=== PATIENT | female | born 1950 | race Caucasian/White ===

== ENCOUNTER → 2020-09-14 14:58 | Outpatient (CLI) | payer MEDICARE, BC, SELFPAY ==
--- NOTE | ~2020-09-14 | MM_ITS ---
EXAMINATION: MM screening celio BI w ba HISTORY: Screening mammogram TECHNIQUE: Craniocaudal and mediolateral oblique 3-D tomosynthesis images were obtained and synthetic 2-D images were generated. CAD analysis was submitted and interpreted. COMPARISON: 07/11/17, 10/31/2017, 10/04/2016 bilateral digital screening mammogram examinations BREAST PARENCHYMAL COMPOSITION: The breasts are almost entirely fatty. FINDINGS: There is no evidence of suspicious mass, calcification, or architectural distortion to sugg est malignancy in either breast. There has been no suspicious interval change. IMPRESSION: 1. No mammographic evidence of malignancy. 2. Recommend routine screening mammography in one year. BI-RADS Category 1: Negative Reviewed, dictated and finalized at location A. ER RUNNER
== END ==
PROVIDERS: PCP Family Medicine; Visit Provider Obstetrics & Gynecology Gynecology
DX: Z12.31 Encounter for screening mammogram for malignant neoplasm of breast (principal)
CPT/HCPCS: 77063; 77067

== ENCOUNTER → 2021-11-04 13:34 | Outpatient (CLI) | payer MEDICARE, SELFPAY ==
--- NOTE | ~2021-11-04 | MM_ITS ---
EXAMINATION: MM screening celio BI w ba HISTORY: Screening TECHNIQUE: Craniocaudal and mediolateral oblique 3-D tomosynthesis images were obtained and synthetic 2-D images were generated. CAD analysis was submitted and interpreted. COMPARISON: Comparison to multiple prior studies sequentially, with oldest reviewed study dated 08/22. BREAST PARENCHYMAL COMPOSITION: Breast composed of scattered areas of fibroglandular density. FINDINGS: The left breast is stable without evidence for malignancy. There is a new mass in the lower outer quadrant of the right breast, middle third. IMPRESSION: 1. New right breast mass, lower outer quadrant. 2. Additional mammographic views and possible breast ultrasound are recommended. BI-RADS Category 0: Incomplete: Needs additional imaging evaluation. Reviewed, dictated and finalized at location A. SAWYER IMPRESSION: 1. New right breast mass, lower outer quadrant. 2. Additional mammographic views and possible breast ultrasound are recommended . BI-RADS Category 0: Incomplete: Needs additional imaging evaluation.
== END ==
PROVIDERS: PCP Family Medicine; Visit Provider Obstetrics & Gynecology Gynecology
DX: Z12.31 Encounter for screening mammogram for malignant neoplasm of breast (principal); R92.8 Other abnormal and inconclusive findings on diagnostic imaging of breast
CPT/HCPCS: 77063; 77067

== ENCOUNTER → 2021-11-22 09:07 | Outpatient (CLI) | payer MEDICARE, SELFPAY ==
--- NOTE | ~2021-11-22 | MMUS_ITS ---
EXAMINATION: MM diagnostic celio RT w ba, US breast RT limited HISTORY: Follow-up right breast mass TECHNIQUE: Additional 3-D tomosynthesis images of the right breast were performed and synthetic 2-D i mages were generated. CAD analysis was submitted and interpreted. High resolution Limited right breas t ultrasound was performed. COMPARISON: Comparison to multiple prior studies sequentially, with oldest reviewed study dated 09/21. BREAST PARENCHYMAL COMPOSITION: Breast composed of scattered areas of fibroglandular density FINDINGS: MAMMOGRAPHIC FINDINGS: There is a persistent mass in the lower outer quadrant of the right breast. There are no suspicious c alcifications or architectural distortion. ULTRASOUND: Limited right breast ultrasound: At 9:00, 4 cm from the nipple, there is an oval hypoechoic mass fior uring 6 mm without posterior features or internal vascularity, likely benign and corresponding to the mammographic finding. IMPRESSION: 1. Probable benign right breast mass, lower outer quadrant. 2. Recommend 6 month follow-up diagnostic right mammogram and ultrasound BI-RADS Category 0: Incomplete: Needs additional imaging evaluation. Reviewed, dictated and finalized at location A. C[employer]URAL [employer] SUPERVISOR IMPRESSION: 1. Probable benign right breast mass, lower outer quadrant. 2. Recommend 6 month follow-up diagnostic right mammogram and ultrasound BI-RADS Category 0: Incomplete: Needs additional imaging evaluation.
== END ==
PROVIDERS: PCP Family Medicine; Visit Provider Obstetrics & Gynecology Gynecology
DX: R92.8 Other abnormal and inconclusive findings on diagnostic imaging of breast (principal); N63.14 Unspecified lump in the right breast, lower inner quadrant
CPT/HCPCS: 76642; 77061; 77065; G0279

== ENCOUNTER → 2022-05-23 09:44 | Outpatient (CLI) | payer MEDICARE, SELFPAY ==
--- NOTE | ~2022-05-23 | MMUS_ITS ---
EXAMINATION: MM diagnostic celio RT w ba, US breast RT limited HISTORY: Follow-up right breast mass TECHNIQUE: Additional 3-D tomosynthesis images of the right breast were performed and synthetic 2-D i mages were generated. CAD analysis was submitted and interpreted. High resolution Limited right breas t ultrasound was performed. COMPARISON: Comparison to multiple prior studies sequentially, with oldest reviewed study dated 09/21. BREAST PARENCHYMAL COMPOSITION: Breast composed of scattered areas of fibroglandular density FINDINGS: MAMMOGRAPHIC FINDINGS: There are no suspicious masses, calcifications or architectural distortion in the right breast to sug gest malignancy. Interval resolution of small mass in the lower outer quadrant of the right breast. ULTRASOUND: Limited right breast ultrasound: There is decreased size of oval hypoechoic 4 mm mass of the right br east at 9:00, 4 cm from the nipple with echogenic hilum, consistent with small lymph node. No suspici ous masses to suggest malignancy. IMPRESSION: 1. No evidence for malignancy in the right breast. Benign findings. 2. Routine yearly screening mammogram and regular clinical breast examination are recommended. BI-RADS Category 2: Benign finding(s). Reviewed, dictated and finalized at location A. IMPRESSION: 1. No evidence for malignancy in the right breast. Benign findings. 2. Routine yearly screening mammogram and regular clinical breast examination a re recommended. BI-RADS Category 2: Benign finding(s).
== END ==
PROVIDERS: Visit Provider Obstetrics & Gynecology Gynecology
DX: R92.8 Other abnormal and inconclusive findings on diagnostic imaging of breast (principal)
CPT/HCPCS: 76642; 77061; 77065; G0279

== ENCOUNTER → 2022-08-03 10:20 | Outpatient (CLI) | payer MEDICARE, SELFPAY ==
--- NOTE | ~2022-08-03 | US_ITS ---
EXAMINATION: US pelvic complete DATE: 08/03/2022 10:43 INDICATION: Postmenopausal bleeding Comparison:Ultrasound dated 02/04/2007 TECHNIQUE: Multiple transabdominal and endovaginal sonographic images of the pelvis performed. FINDINGS: The uterus measures 11.5 x 8.3 x 8.3 cm. There is a uterine fibroid measuring 6.5 x 5.3 x 5 .4 cm The endometrial complex measures 8 mm. The ovaries are not visualized. There is no free fluid in the pelvis. There are no abnormal masses seen on either side. IMPRESSION: 1. Thickened endomtrial complex. The differential diagnosis includes endometrial hyperplasia, polyp a nd carcinoma. Biopsy is recommended. 2: Enlarged uterus containing a 6.5 cm partially calcified uterine fibroid. Reviewed, dictated and finalized at location A. IMPRESSION: 1. Thickened endomtrial complex. The differential diagnosis includes endometria l hyperplasia, polyp and carcinoma. Biopsy is recommended. 2: Enlarged uterus containing a 6.5 cm partially calcified uterine fibroid.
== END ==
PROVIDERS: PCP Family Medicine; Visit Provider Obstetrics & Gynecology Gynecology
DX: N95.0 Postmenopausal bleeding (principal); N85.2 Hypertrophy of uterus
CPT/HCPCS: 76856

== ENCOUNTER 2022-09-13 12:38 | Outpatient (CLI) | payer MEDICARE, SELFPAY ==
[2022-09-13 13:35] LABS: Anion Gap 7 mmol/L (8-16); Blood Urea Nitrogen 20 mg/dL (7-17); Calcium 8.8 mg/dL (8.4-10.2); Carbon Dioxide 28 mmol/L (22-30); Chloride 99 mmol/L (98-107); Estimated Glomerular Filt Rate 55; Glucose 211 mg/dL (65-110); Potassium 3.4 mmol/L (3.4-5.0); Sodium 134 mmol/L (137-145)
== END 2022-09-13 12:39 | disposition home or self-care (01) ==
LOC: ANHSURGERY 12:45
PROVIDERS: Anesthesiology; PCP Emergency Medicine; Visit Provider Obstetrics & Gynecology Gynecology
DX: Z01.818 Encounter for other preprocedural examination (principal); Z79.4 Long term (current) use of insulin; E11.65 Type 2 diabetes mellitus with hyperglycemia
CPT/HCPCS: 36415; 80048

== ENCOUNTER 2022-09-18 00:26 | Day surgery (SDC) | payer MEDICARE, SELFPAY ==
[2022-09-08 08:28] VITALS: BMI 39.6
--- NOTE | 2022-09-08 08:43 | PC.NURSE ---
Addendum entered by China Avilez RN 09/13/22 13:27: 09/13/22 PT HERE FOR TESTING, STATES TAKES BISOPROLOL AT NOC - IN INFORMED NOT TO TAKE BISOPROLOL AM OF SURGERY - UNDERSTANDING VOICED. BISOPROLOL MARKED OUT ON HER INSTRUCTION SHEET Original Note: PRE-OP INSTRUCTIONS, PLEASE READ CAREFULLY Report to the Outpatient Waiting Room, entrance under the green pavilion located off [facility], at time _1100_ on date _09/18/22_. Planned Procedure Time: _1 PM_. Time changes happen often and if your time is changed the preop area will call you the afternoon before. - You and your visitor will be asked to self-screen and do not enter if you have any COVID symptoms. - Only one visitor is requested with a max of two and NO children visitors are allowed at this time. - The patient visitor may be requested to leave or wait in car when not with patient due to distancing restrictions. - A mask is optional within the hospital. Patients may have clear liquids (water, carbonated beverages, clear teas, apple juice) until 3 hours prior to surgery (1000 AM) with a maximum of 20 ounces. - No food from midnight until time of surgery Take the following medications with a SIP of water the morning of surgery: _* 1/2 OF LEVEMIR INSULIN AM DOSE, AMOXICILLIN, BISOPROLOL, DIAZEPAM, LEVOTHYROXINE_ Medications to discontinue per ANESTHESIA - _VITAMINS/SUPPLEMENTS 3 DAYS PRIOR TO SURGERY, Date to take last dose 09/14/22_ Please no make-up, nail bulgarian, hairspray, perfume, deodorant, or body powder the day of surgery. No jewelry (including any body piercings) or valuables the day of surgery, leave them at home. Please take a shower or bath the night before, or the morning of, surgery with an antibacterial soap. Wear comfortable, loose fitting clothing. - Jewelry must be removed prior to entering the operating room. Rings and piercings that are not removed may be cut off. - The hospital will not accept responsibility for valuables. - Please leave all valuables, including medications, at home the day of surgery. If you are going home after surgery, a licensed bulk delivery driver must drive you home. - NO public transportation without another adult if you receive anesthesia. - We recommend that an adult stay with you for 24 hours following discharge. - We also recommend that you do not drive, make important decision, drink alcoholic beverages, or take any drugs that were not prescribed by your health care provider for at least 24 hours after your discharge time. Follow any additional instructions given to you from your surgeon. If you or anyone in your household have experienced Covid symptoms in the past week, please notify your surgeon or the nurse liaison at the phone number below for possible testing. Telephone instructions given to _PT_and asked if any additional questions and then verbalized understanding. Patient advised to call surgeon office or pre surgery nurse liaison [phone] if any additional questions.
--- NOTE | 2022-09-18 07:45 | WPDHPUPDATE1 ---
History and Physical Update Update Date/Time: 09/18/22 07:45 History and Physical has been reviewed, including an updated exam of the patient. There are NO changes in the patient's condition. Risks, benefits, and alternatives have been discussed and questions answered. Patient agrees to proceed with procedure.
--- NOTE | 2022-09-18 07:45 | PM.HPGS ---
History of Present Illness History of Present Illness Consent: Risks, benefits, and alternatives have been discussed and questions answered. Patient agrees to proceed with procedure. Chief complaint: post menopausal bleeding Narrative: Pilar Shaw is a 72 year old female with postmenopausal bleeding. Patient had ultrasound performed which revealed an endometrium to be thickened at 8mm. It was recommended to proceed with D&C hysteroscopy. Risks of infection, bleeding, and perforation were reviewed. Patient voices understanding and agrees to proceed. Review of Systems Review of Systems: not repeated day of surgery; patient states no changes in status Respiratory: Respiratory: Reports dyspnea Gastrointestinal: Gastrointestinal: Reports abdominal pain Genitourinary: Genitourinary: Reports urinary incontinence Musculoskeletal: Musculoskeletal: Reports back pain, Reports arthralgias and Reports neck pain PMFSH Past Medical History Medical History (Updated 09/18/22 @ 08:09 by Anastasia Ramirez MD) CPAP (continuous positive airway pressure) dependence setting 11 Depression with anxiety Diabetic peripheral neuropathy Essential hypertension Fibromyalgia GERD (gastroesophageal reflux disease) Hypothyroidism, acquired Irritable bowel syndrome Other and unspecified hyperlipidemia Sleep apnea Type 2 diabetes mellitus with hyperglycemia, with long-term current use of insulin Vitamin B12 deficiency Surgical History Surgical History (Updated 09/18/22 @ 08:08 by Anastasia Ramirez MD) History of bladder surgery on ureter History of cholecystectomy open History of dilation and curettage 2006 with hysteroscopy History of endoscopy History of hip surgery 1963, 1966 right hip History of kidney surgery 2012, stone removal History of surgery on lower extremity left leg for broken bone History of tonsillectomy Family History Family History Other Cerebrovascular accident Depression Diabetes mellitus Family history of arthritis Family history of genitourinary disease Family history of mental disorder Family history of osteoporosis Malignant neoplasm of prostate Social History Social History Smoking status: Never smoker Tobacco type: cigarettes Second hand tobacco smoke exposure: No Alcohol intake: never Substance use: never Substance use type: does not use Living arrangements: alone Spiritual care concerns: No Meds Home Medications and Allergies Home Medications Medication Instructions Recorded Confirmed Type albuterol sulfate 90 mcg/actuation 1 puff inhalation Q4H PRN Wheezing 12/02/19 09/07/22 History aerosol inhaler (Proventil HFA) aspirin 81 mg tablet,delayed 81 mg PO DAILY 12/02/19 09/07/22 History release (Adult Low Dose Aspirin) cyanocobalamin (vitamin B-12) 1,000 mcg PO DAILY 12/02/19 09/07/22 History 1,000 mcg capsule esomeprazole magnesium 40 mg 40 mg PO BID 12/02/19 09/07/22 History capsule,delayed release (Nexium) ezetimibe 10 mg tablet (Zetia) 10 mg PO DAILY 12/02/19 09/07/22 History losartan 100 mg tablet 100 mg PO DAILY 12/02/19 09/07/22 History norethindrone acetate 1 mg-ethinyl 1 tablet PO DAILY 06/08/20 09/07/22 History estradiol 5 mcg tablet omega 3-dha 25 mg-epa 5 mg-fish 1 tablet PO DAILY 06/08/20 09/07/22 History oil 113.5 mg chewable tablet mirtazapine 15 mg tablet 30 mg PO DAILY 12/06/21 09/07/22 History bisoprolol fumarate 5 mg tablet 2.5 mg PO DAILY 04/04/22 09/07/22 History blood sugar diagnostic (Accu-Chek #400 ea 04/04/22 07/06/22 Rx Guide test strips) cholecalciferol (vitamin D3) 62.5 15,000 unit PO DAILY 04/04/22 09/07/22 History mcg (2,500 unit) chewable tablet colestoff plus 1 tab-cap PO QAM 04/04/22 09/07/22 History diazepam 2 mg tablet (Valium) 1 mg PO BID 04/04/22 09/07/22 History hydrochl
--- NOTE | 2022-09-18 10:29 | WPDANESEPPF ---
Anes - Initial Pre Proc Eval Procedure: Operation Date: 09/18/22 12:15 Proposed Procedures p Hysteroscopy, Dilation and Curettage - Anastasia Ramirez MD Date/Time: 09/18/22 10:29 Surgeon: Anastasia Ramirez MD Pre Op Diagnosis: post menopausal bleeding Patient Data Age: 72 Gender: F Height: 1.74 m Weight: 120 kg Allergies Allergy/AdvReac Type Severity Reaction Status Date / Time alprazolam [From Xanax] Allergy Unknown Verified 09/18/22 07:28 amitriptyline [From Triavil] Allergy Unknown Verified 09/18/22 07:28 atorvastatin Allergy Unknown Hives Verified 09/07/22 14:46 azithromycin Allergy Unknown Unknown Verified 09/07/22 14:46 citalopram [From Celexa] Allergy Unknown Verified 09/18/22 07:28 duloxetine [From Cymbalta] Allergy Unknown Verified 09/18/22 07:28 escitalopram [From Lexapro] Allergy Unknown Verified 09/18/22 07:28 exenatide Allergy Unknown Difficulty Verified 09/07/22 14:46 Breathing fluticasone Allergy Unknown Unknown Verified 09/07/22 14:46 glyburide Allergy Unknown Cough Verified 09/07/22 14:46 levothyroxine sodium Allergy Unknown PAPITATION Verified 09/07/22 14:46 WITH GENERIC lisinopril Allergy Unknown Cough Verified 09/07/22 14:46 morphine Allergy Unknown Difficulty Verified 09/07/22 14:46 Breathing, hallucinations nitroglycerin Allergy Unknown Nitropaste= Verified 09/18/22 07:28 Congestion nortriptyline [From Pamelor] Allergy Unknown Verified 09/18/22 07:28 oxycodone Allergy Unknown Dizziness Verified 09/07/22 14:46 paroxetine [From Paxil] Allergy Unknown Verified 09/18/22 07:28 perphenazine [From Triavil] Allergy Unknown Verified 09/18/22 07:28 sertraline [From Zoloft] Allergy Unknown Verified 09/18/22 07:28 [id number]-[id number] Reductase Allergy Unknown MUSCLE PAIN Verified 09/07/22 14:46 Inhibitor [Wxwulic-Mab-Lsm Reductase Inhibitor] Sulfa (Sulfonamide Allergy Unknown Abdominal Verified 09/07/22 14:46 Antibiotics) Pain acetaminophen AdvReac Unknown Difficulty Verified 09/07/22 14:46 Swallowing clindamycin AdvReac Unknown Nausea Verified 09/18/22 07:28 erythromycin base AdvReac Unknown STOMACHE Verified 09/18/22 07:28 PAIN levofloxacin AdvReac Unknown Nausea Verified 09/18/22 07:28 metformin AdvReac Unknown JOINT AND Verified 09/18/22 07:28 MUSCLE PAINS Home Medications Medication Instructions Recorded Confirmed Type albuterol sulfate 90 mcg/actuation 1 puff inhalation Q4H PRN Wheezing 12/02/19 09/07/22 History aerosol inhaler (Proventil HFA) aspirin 81 mg tablet,delayed 81 mg PO DAILY 12/02/19 09/07/22 History release (Adult Low Dose Aspirin) cyanocobalamin (vitamin B-12) 1,000 mcg PO DAILY 12/02/19 09/07/22 History 1,000 mcg capsule esomeprazole magnesium 40 mg 40 mg PO BID 12/02/19 09/07/22 History capsule,delayed release (Nexium) ezetimibe 10 mg tablet (Zetia) 10 mg PO DAILY 12/02/19 09/07/22 History losartan 100 mg tablet 100 mg PO DAILY 12/02/19 09/07/22 History norethindrone acetate 1 mg-ethinyl 1 tablet PO DAILY 06/08/20 09/07/22 History estradiol 5 mcg tablet omega 3-dha 25 mg-epa 5 mg-fish 1 tablet PO DAILY 06/08/20 09/07/22 History oil 113.5 mg chewable tablet mirtazapine 15 mg tablet 30 mg PO DAILY 12/06/21 09/07/22 History bisoprolol fumarate 5 mg tablet 2.5 mg PO DAILY 04/04/22 09/07/22 History blood sugar diagnostic (Accu-Chek #400 ea 04/04/22 07/06/22 Rx Guide test strips) cholecalciferol (vitamin D3) 62.5 15,000 unit PO DAILY 04/04/22 09/07/22 History mcg (2,500 unit) chewable tablet colestoff plus 1 tab-cap PO QAM 04/04/22 09/07/22 History diazepam 2 mg tablet (Valium) 1 mg PO BID 04/04/22 09/07/22 History hydrochlorothiazide 25 mg tablet 25 mg PO DAILY 04/04/22 09/07/22 History lancets (Accu-Chek Fastclix Lancet #200 ea 04/04/22 07/06/22 Rx Drum) levothyroxine 50 mcg tablet 50 mcg PO QAM 04/04/22 09/07/22 History (Synthroid) oxygen-air delivery systems 06
[2022-09-18 10:30] VITALS: BP 186/74; PULSE 70; RESP 16; TEMP 36.9; O2SAT 100
[2022-09-18] MEDS: LACTATED RINGERS 1,000 ML 30 ML IV CONT ×2 (10:30→12:07)
[2022-09-18 11:09] LABS: Glucose Point of Care 176 mg/dl (65-105)
[2022-09-18] MEDS: LIDOCAINE HCL 1% PF 30 ML VIAL 10 ML INFILTRATE (11:25)
--- NOTE | 2022-09-18 12:03 | W.PM.PROC2 ---
Procedure Note - Detailed Date of Procedure 09/18/22 Pre-op Diagnosis post menopausal bleeding Post-op Diagnosis Same Procedure Performed D&C hysteroscopy with resection of uterine masses Surgeon Anastasia Ramirez MD Anesthesia MAC and Local Findings The cervix is very stenotic. The uterus sounds to 10cm. The uterus several small fibroids as well as 2 large posterior vascular masses. Initially the masses were thought to be polyps however the consistency with resection is more consistent with fibroids.The underlying endometrium appears atrophic. Description of Procedure The patient is taken to the operating room and placed under anesthesia in the dorsal lithotomy position. She was prepped and draped in the usual sterile fashion. [place] speculum was placed in the vagina and the cervix grasped on the anterior lip with a tenaculum. The cervix is injected in each quadrant with 1% lidocaine. The cervical os is scarred and has no opening. The os Finders are used and the external os is able to be entered. The hysteroscope was then used to hydro dissect and find the internal os. Once the cavity is entered the above-stated findings are noted. The resection blade is placed through the camera and the 2 large posterior masses are excised. The larger mass is detached at its base and a small portion is free-floating. The graspers are placed and are too small to grasp the free-floating portion.The hysteroscope was removed and the polyp forceps are used to attempt to remove the free-floating segment. This was not successful. The sharp curette used to curette the endometrium until a good uterine cry was noted in all areas. Minimal materials obtained consistent with the atrophic appearance. All instruments were then removed. Sponge, needle, and instrument counts are correct per the OR staff. Patient is awakened from anesthesia and taken to recovery in stable condition. Estimated Blood Loss 100 Drains No Packing No Pathology Yes ( Endometrial shavings and curettings) Complications No immediate complications Condition Stable Disposition PACU
[2022-09-18 12:07] VITALS: BP 159/72; PULSE 74; RESP 14; O2SAT 99
[2022-09-18] MEDS: ONDANSETRON INJ 4 MG/2 ML VIAL IV PUSH (12:28)
[2022-09-18 12:30] VITALS: BP 179/82; PULSE 72; RESP 14; O2SAT 96
[2022-09-18] MEDS: fentaNYL CITRATE INJ (*CRX) 100 MCG/2 ML VIAL 25 MCG IV PUSH (12:41)
[2022-09-18 12:44] LABS: Glucose Point of Care 160 mg/dl (65-105)
[2022-09-18 12:54] VITALS: BP 156/64; PULSE 60; RESP 14; O2SAT 97
[2022-09-18 13:20] VITALS: BP 166/74; PULSE 56; RESP 14
[2022-09-18 13:50] VITALS: BP 121/58; PULSE 55; RESP 14
--- NOTE | 2022-09-18 13:59 | SUR.PHASEII ---
DR. SUH CALLED TO ASK ABOUT PATIENT TAKING BP MEDS TODAY; HE INSTRUCTED PATIENT TO TAKE BOTH LOSARTAN AND HYDROCHLOROTHIAZIDE TODAY.
== END 2022-09-18 14:15 | disposition home or self-care (01) ==
PROVIDERS: PCP Emergency Medicine; Visit Provider Obstetrics & Gynecology Gynecology
PROC: 0U5B8ZZ Destruction of Endometrium, Via Natural or Artificial Opening Endoscopic (ICD-10-PCS; CPT 58563; principal; 2022-09-18 12:15)
DX: N95.0 Postmenopausal bleeding (principal); D25.9 Leiomyoma of uterus, unspecified; E11.42 Type 2 diabetes mellitus with diabetic polyneuropathy; E03.9 Hypothyroidism, unspecified; I10 Essential (primary) hypertension; F41.8 Other specified anxiety disorders; M79.7 Fibromyalgia; K58.9 Irritable bowel syndrome, unspecified; E53.8 Deficiency of other specified B group vitamins; Z79.51 Long term (current) use of inhaled steroids; Z79.82 Long term (current) use of aspirin; Z79.4 Long term (current) use of insulin; E66.01 Morbid (severe) obesity due to excess calories; Z68.39 Body mass index [BMI] 39.0-39.9, adult
CPT/HCPCS: 58561; 36415; 80048; 82948; 88305; A9270; J2405; J2704; J3010; J7030; J7120